=== PATIENT | male | born 1955 | race Caucasian/White ===

== ENCOUNTER 2020-01-08 03:52 | Inpatient (IN) | payer OTHER ==
[2020-01-08] VITALS (16 sets, daily range): BP systolic 86–111; BP diastolic 57–86
[~2020-01-08] VITALS: Ht 165.1 cm; Wt 70.8 kg
[2020-01-08 06:00] LABS: BASOPHILS % 1.2 % (0.0-2.0); EOSINOPHILS % 2.8 % (0.0-5.0); LYMPHOCYTES % 30.7 % (20.0-50.0); MEAN CORPUSCULAR HEMOGLOBIN 16.5 pg (28.0-32.0); MEAN PLATELET VOLUME 8.5 fl (7.4-10.4); MONOCYTES % 8.9 % (2.0-8.0); NEUTROPHILS % 56.4 % (40.0-76.0); PLATELET 261 x1000/uL (130-400); RED BLOOD CELL COUNT 3.59 mill/uL (4.7-6.1)
[2020-01-08 06:02] LABS: CHLORIDE 110 mEq/L (98-107)
[2020-01-08 06:07] LABS: HEMATOCRIT. 20.5 % (42.0-52.0); HEMOGLOBIN. 5.9 g/dL (14.0-18.0); INR 1.1; PARTIAL THROMBOPLASTIN TIME 23.5 sec (23.4-31.0); PROTHROMBIN TIME 11.8 sec (9.6-11.0)
[2020-01-08 06:08] LABS: PLATELET ESTIMATE NORMAL
[2020-01-08] MEDS ORDERED: SODIUM CHLORIDE 0.9% 1,000 ML IV ONE (06:08)
[2020-01-08 11:15] LABS: HEMOGLOBIN 6.2 g/dL (14.0-18.0)
[2020-01-08 11:16] LABS: HEMATOCRIT 20.1 % (42.0-52.0)
[2020-01-08 11:37] LABS: TOTAL IRON BINDING CAPACITY 369 ug/dL (250-450)
[2020-01-08 12:31] LABS: VITAMIN B12 SERUM 406 pg/mL (211-911)
[2020-01-08 12:50] LABS: FERRITIN < 5 ng/mL (22-322)
[2020-01-08] MEDS ORDERED: PNEUMOCOCCAL 23-VAL P-SAC VAC 0.5 ML IM ONE (13:30)
[2020-01-08] MEDS ORDERED: IPRATROPIUM/ALBUTEROL 0.5-3(2.5)MG/3ML NEB HHN PRN (16:30)
[2020-01-08] MEDS ORDERED: ONDANSETRON HCL 4MG/2ML INJ IV PRN (16:30)
[2020-01-08] MEDS ORDERED: HYDROCODONE/ACETAMINOPHEN 5/325MG TABLET PO PRN (16:30)
[2020-01-08] MEDS ORDERED: LORAZEPAM 0.5MG TABLET PO PRN (16:30)
[2020-01-08] MEDS ORDERED: MORPHINE SULFATE 2 MG/ML CPJ (NOT FOR IM USE) IV PRN (16:30)
[2020-01-08] MEDS ORDERED: ACETAMINOPHEN 325MG TABLET PO PRN ×2 (16:30)
[2020-01-08] MEDS: SODIUM CHLORIDE 0.9% 1,000 ML IV SCH (17:08)
[2020-01-08 20:09] LABS: HEMATOCRIT 24.8 % (42.0-52.0); HEMOGLOBIN 7.7 g/dL (14.0-18.0)
[2020-01-08] MEDS ORDERED: SITA100T11 PO (22:19)
[2020-01-08] MEDS ORDERED: SIMV-46 PO (22:19)
[2020-01-08] MEDS ORDERED: LISI40TA4 PO (22:19)
[2020-01-08 22:58] LABS: *AMPHETAMINES SCREEN URINE NEGATIVE (NEGATIVE); *BARBITURATES SCREEN URINE NEGATIVE (NEGATIVE); *BENZODIAZEPINES SCREEN URINE NEGATIVE (NEGATIVE); *COCAINE SCREEN URINE NEGATIVE (NEGATIVE); METHADONE URINE SCREEN NEGATIVE (NEGATIVE)
[2020-01-08 22:59] LABS: CANNABINOID URINE SCREEN NEGATIVE (NEGATIVE); OPIATES URINE SCREEN NEGATIVE (NEGATIVE); PHENCYCLIDINE URINE SCREEN NEGATIVE (NEGATIVE)
[2020-01-09] VITALS (17 sets, daily range): BP systolic 95–163; BP diastolic 55–87
[2020-01-09 00:47] LABS: HEMATOCRIT 24.5 % (42.0-52.0); HEMOGLOBIN 7.7 g/dL (14.0-18.0)
[2020-01-09] MEDS: SODIUM CHLORIDE 0.9% 1,000 ML IV SCH ×2 (04:03→16:51)
[2020-01-09 06:23] LABS: HEMATOCRIT 23.1 % (42.0-52.0); HEMOGLOBIN 7.3 g/dL (14.0-18.0)
[2020-01-09 13:10] LABS: FOLATE RBC 1814 ng/mL (>498)
[2020-01-09] MEDS: IRON SUCROSE COMPLEX 100 MG/5 ML ML IV SCH (14:54)
[2020-01-09] MEDS ORDERED: SORBITOL 70% SOLN 30ML PO SCH ×2 (16:00→20:00)
[2020-01-10] VITALS (12 sets, daily range): BP systolic 102–157; BP diastolic 48–102
[2020-01-10] MEDS: SODIUM CHLORIDE 0.9% 1,000 ML IV SCH ×2 (02:54→13:28)
[2020-01-10 07:34] LABS: BASOPHILS % 0.7 % (0.0-2.0); EOSINOPHILS % 2.7 % (0.0-5.0); HEMATOCRIT. 29.4 % (42.0-52.0); HEMOGLOBIN. 9.5 g/dL (14.0-18.0); LYMPHOCYTES % 27.6 % (20.0-50.0); MEAN CORPUSCULAR HEMOGLOBIN 22.9 pg (28.0-32.0); MEAN CORPUSCULAR VOLUME 70.4 fL (80.0-94.0); MEAN PLATELET VOLUME 8.4 fl (7.4-10.4); MONOCYTES % 9.6 % (2.0-8.0); NEUTROPHILS % 59.4 % (40.0-76.0); PLATELET 209 x1000/uL (130-400); RED BLOOD CELL COUNT 4.17 mill/uL (4.7-6.1); RED CELL DISTRIBUTION WIDTH 32.2 % (11.6-14.6)
[2020-01-10 07:41] LABS: INR 1.1; PARTIAL THROMBOPLASTIN TIME 24.2 sec (23.4-31.0); PROTHROMBIN TIME 11.6 sec (9.6-11.0)
[2020-01-10 08:35] LABS: CHLORIDE 119 mEq/L (98-107)
[2020-01-10] MEDS: IRON SUCROSE COMPLEX 100 MG/5 ML ML IV SCH (08:55)
[2020-01-10] MEDS ORDERED: SORBITOL 70% SOLN 30ML PO STA (10:45)
[2020-01-10] MEDS ORDERED: FENTANYL CITRATE/PF 50MCG/ML 2ML VIAL IV PRN (12:52)
[2020-01-10] MEDS ORDERED: MIDAZOLAM HCL 5 MG/5 ML VIAL IV PRN (12:54)
[2020-01-10] MEDS ORDERED: MIDAZOLAM HCL 5 MG/5 ML VIAL ONE (12:54)
[2020-01-10] MEDS ORDERED: FENTANYL CITRATE/PF 50MCG/ML 2ML VIAL ONE (12:54)
[2020-01-10 17:40] LABS: INR 1.1; PARTIAL THROMBOPLASTIN TIME 25.4 sec (23.4-31.0); PROTHROMBIN TIME 11.8 sec (9.6-11.0)
[2020-01-10] MEDS ORDERED: IOHEXOL-300 100 ML BOTTLE ONE (21:37)
[2020-01-11] VITALS (16 sets, daily range): BP systolic 102–171; BP diastolic 52–91
[2020-01-11] MEDS: SODIUM CHLORIDE 0.9% 1,000 ML IV SCH ×2 (01:02→12:14)
[2020-01-11 07:50] LABS: BASOPHILS % 0.7 % (0.0-2.0); EOSINOPHILS % 1.6 % (0.0-5.0); HEMATOCRIT. 29.8 % (42.0-52.0); HEMOGLOBIN. 9.6 g/dL (14.0-18.0); LYMPHOCYTES % 16.2 % (20.0-50.0); MEAN CORPUSCULAR VOLUME 71.1 fL (80.0-94.0); MEAN PLATELET VOLUME 8.5 fl (7.4-10.4); MONOCYTES % 6.2 % (2.0-8.0); NEUTROPHILS % 75.3 % (40.0-76.0); PLATELET 203 x1000/uL (130-400); RED BLOOD CELL COUNT 4.19 mill/uL (4.7-6.1); RED CELL DISTRIBUTION WIDTH 32.4 % (11.6-14.6)
[2020-01-11 08:13] LABS: CHLORIDE 118 mEq/L (98-107)
[2020-01-11] MEDS: IRON SUCROSE COMPLEX 100 MG/5 ML ML IV SCH (08:28)
[2020-01-11] MEDS ORDERED: POLYETHYLENE GLYCOL-ELECTROLYTE 4000ML PO NR (15:00)
[2020-01-11] MEDS ORDERED: NEOMYCIN 500MG TABLET PO SCH ×3 (18:00→23:00)
[2020-01-11] MEDS ORDERED: METRONIDAZOLE 500MG TABLET PO SCH ×3 (18:00→23:00)
[2020-01-11] MEDS: INSULIN LISPRO 100 UNITS/ML SUBCUT SCH (23:15)
[2020-01-11] MEDS ORDERED: HYDRALAZINE 20MG/ML VIAL IV PRN (23:15)
[2020-01-11] MEDS ORDERED: DEXTROSE 50% WATER 50ML SYRINGE IV PRN (23:15)
[2020-01-11] MEDS: BLOOD SUGAR DIAGNOSTIC STRIP TEST SCH (23:21)
[2020-01-12] VITALS (14 sets, daily range): BP systolic 94–161; BP diastolic 38–72
[2020-01-12] MEDS: SODIUM CHLORIDE 0.9% 1,000 ML IV SCH (03:25)
[2020-01-12] MEDS: BLOOD SUGAR DIAGNOSTIC STRIP TEST SCH ×4 (06:24→20:04)
[2020-01-12 06:28] LABS: CHLORIDE 116 mEq/L (98-107)
[2020-01-12 06:34] LABS: BASOPHILS % 0.6 % (0.0-2.0); EOSINOPHILS % 2.3 % (0.0-5.0); HEMATOCRIT. 31.2 % (42.0-52.0); LYMPHOCYTES % 26.4 % (20.0-50.0); MEAN CORPUSCULAR HEMOGLOBIN 23.2 pg (28.0-32.0); MEAN CORPUSCULAR VOLUME 72.7 fL (80.0-94.0); MEAN PLATELET VOLUME 8.4 fl (7.4-10.4); MONOCYTES % 8.4 % (2.0-8.0); NEUTROPHILS % 62.3 % (40.0-76.0); PLATELET 208 x1000/uL (130-400); RED BLOOD CELL COUNT 4.29 mill/uL (4.7-6.1)
[2020-01-12] MEDS ORDERED: BUPIVACAINE HCL/PF 0.5% (5MG/ML) 10ML ONE (06:43)
[2020-01-12] MEDS ORDERED: LIDOCAINE HCL 1% 20ML VIAL (Pyxis) INJ ONE (06:43)
[2020-01-12] MEDS ORDERED: NORMAL SALINE 0.9% 10 ML SYR ONE (06:44)
[2020-01-12] MEDS ORDERED: BACITRACIN 50,000 UNITS/VIAL ONE (06:44)
[2020-01-12] MEDS: INSULIN LISPRO 100 UNITS/ML SUBCUT SCH ×4 (07:20→20:11)
[2020-01-12] MEDS ORDERED: MORPHINE SULFATE/PF 1MG/ML 10ML AMP ONE (07:30)
[2020-01-12] MEDS ORDERED: CEFAZOLIN 2,000 MG in DEXT 5% WATER 100 ML IV SCH (08:00)
[2020-01-12] MEDS ORDERED: ROCURONIUM BROMIDE 10MG/ML VIAL 5ML IV ONE (08:43)
[2020-01-12] MEDS ORDERED: PROPOFOL 200MG/20ML VIAL IV ONE (08:43)
[2020-01-12] MEDS ORDERED: DEXAMETHASONE 4MG/ML 1ML VIAL ONE (08:44)
[2020-01-12] MEDS ORDERED: GLYCOPYRROLATE 0.2 MG/ML 2ML VIAL ONE ×2 (08:47→09:28)
[2020-01-12] MEDS ORDERED: METRONIDAZOLE 500 MG PREMIX 100 ML IV ONE (09:28)
[2020-01-12] MEDS ORDERED: ALBUMIN HUMAN 12.5G/250ML (5%) IV ONE (09:36)
[2020-01-12] MEDS ORDERED: MEPERIDINE HCL/PF 25MG/ML CPJ IV PRN (10:30)
[2020-01-12] MEDS ORDERED: LABETALOL 5MG/ML SYR 20 MG/4 ML SYRINGE IV PRN (10:30)
[2020-01-12] MEDS ORDERED: ONDANSETRON HCL 4MG/2ML INJ IV PRN (10:30)
[2020-01-12] MEDS ORDERED: METRONIDAZOLE 500 MG PREMIX 100 ML IV SCH ×2 (11:00→23:00)
[2020-01-12] MEDS: HYDROMORPHONE HCL/PF 2MG/ML CPJ IV PRN ×4 (11:51→12:41)
[2020-01-12] MEDS: DEXT 5%/0.45% NACL KCL 20MEQ/L 1,000 ML IV SCH (15:14)
[2020-01-13] VITALS (16 sets, daily range): BP systolic 92–158; BP diastolic 55–83
[2020-01-13] MEDS: DEXT 5%/0.45% NACL KCL 20MEQ/L 1,000 ML IV SCH ×3 (01:48→20:00)
[2020-01-13] MEDS: BLOOD SUGAR DIAGNOSTIC STRIP TEST SCH ×4 (06:02→20:44)
[2020-01-13 07:11] LABS: BASOPHILS % 0.1 % (0.0-2.0); HEMATOCRIT. 29.3 % (42.0-52.0); HEMOGLOBIN. 9.3 g/dL (14.0-18.0); LYMPHOCYTES % 7.6 % (20.0-50.0); MEAN CORPUSCULAR VOLUME 72.6 fL (80.0-94.0); MEAN PLATELET VOLUME 8.2 fl (7.4-10.4); MONOCYTES % 7.3 % (2.0-8.0); PLATELET 226 x1000/uL (130-400); RED BLOOD CELL COUNT 4.04 mill/uL (4.7-6.1); RED CELL DISTRIBUTION WIDTH 33.5 % (11.6-14.6)
[2020-01-13] MEDS: INSULIN LISPRO 100 UNITS/ML SUBCUT SCH ×4 (07:20→20:44)
[2020-01-13 08:15] LABS: CHLORIDE 115 mEq/L (98-107)
[2020-01-13] MEDS: HYDROMORPHONE HCL/PF 2MG/ML CPJ IV PRN ×3 (13:26→22:52)
[2020-01-13] MEDS: PANTOPRAZOLE SODIUM 40 MG/VIAL IV SCH (18:02)
[2020-01-13] MEDS: BISACODYL 10MG SUPP PR SCH (20:54)
[2020-01-13] MEDS: METOCLOPRAMIDE HCL 10MG/2ML VIAL IV SCH (23:40)
[2020-01-14] VITALS (15 sets, daily range): BP systolic 109–158; BP diastolic 59–83
[2020-01-14] MEDS: HYDROMORPHONE HCL/PF 2MG/ML CPJ IV PRN ×6 (01:24→20:57)
[2020-01-14] MEDS: METOCLOPRAMIDE HCL 10MG/2ML VIAL IV SCH ×4 (05:17→23:30)
[2020-01-14] MEDS: DEXT 5%/0.45% NACL KCL 20MEQ/L 1,000 ML IV SCH ×2 (05:24→22:08)
[2020-01-14] MEDS: BLOOD SUGAR DIAGNOSTIC STRIP TEST SCH ×4 (06:29→21:07)
[2020-01-14 06:47] LABS: BASOPHILS % 0.4 % (0.0-2.0); EOSINOPHILS % 0.7 % (0.0-5.0); HEMOGLOBIN. 8.7 g/dL (14.0-18.0); LYMPHOCYTES % 15.4 % (20.0-50.0); MEAN CORPUSCULAR HEMOGLOBIN 23.7 pg (28.0-32.0); MEAN CORPUSCULAR VOLUME 73.4 fL (80.0-94.0); MEAN PLATELET VOLUME 8.3 fl (7.4-10.4); NEUTROPHILS % 75.5 % (40.0-76.0); PLATELET 181 x1000/uL (130-400); RED BLOOD CELL COUNT 3.68 mill/uL (4.7-6.1); RED CELL DISTRIBUTION WIDTH 34.8 % (11.6-14.6)
[2020-01-14 06:59] LABS: CHLORIDE 110 mEq/L (98-107)
[2020-01-14] MEDS: INSULIN LISPRO 100 UNITS/ML SUBCUT SCH ×4 (07:20→21:12)
[2020-01-14] MEDS: PANTOPRAZOLE SODIUM 40 MG/VIAL IV SCH ×2 (09:25→16:42)
[2020-01-14] MEDS: BISACODYL 10MG SUPP PR SCH (09:25)
[2020-01-14] MEDS: ENOXAPARIN 40MG/0.4ML SYR SUBCUT SCH (09:25)
[2020-01-14] MEDS ORDERED: HYDROCODONE/ACETAMINOPHEN 5/325MG TABLET PO PRN (10:45)
[2020-01-14] MEDS: LISINOPRIL 20MG TABLET PO SCH (12:58)
[2020-01-14] MEDS ORDERED: HYDRALAZINE 10 MG in SODIUM CHLORIDE 0.9% 49.5 ML IV PRN (15:30)
[2020-01-14] MEDS: ATORVASTATIN CALCIUM 40MG TABLET PO SCH (20:50)
[2020-01-14] MEDS ORDERED: HYDROMORPHONE HCL/PF 2MG/ML CPJ IV PRN (21:45)
[2020-01-14] MEDS: GABAPENTIN 300MG CAPSULE PO SCH (22:09)
[2020-01-14] MEDS: KETOROLAC 30MG/ML VIAL IV SCH (22:40)
[2020-01-15] VITALS: BP 137/68
[2020-01-15] MEDS: KETOROLAC 30MG/ML VIAL IV SCH ×4 (03:30→21:04)
[2020-01-15 04:00] VITALS: BP 143/66
[2020-01-15] MEDS: METOCLOPRAMIDE HCL 10MG/2ML VIAL IV SCH ×3 (06:03→18:00)
[2020-01-15] MEDS: GABAPENTIN 300MG CAPSULE PO SCH ×3 (06:03→21:54)
[2020-01-15] MEDS: BLOOD SUGAR DIAGNOSTIC STRIP TEST SCH ×4 (06:25→20:01)
[2020-01-15 07:32] LABS: CHLORIDE 110 mEq/L (98-107)
[2020-01-15 07:46] LABS: PHOSPHORUS 2.4 mg/dL (2.5-4.9)
[2020-01-15] MEDS: INSULIN LISPRO 100 UNITS/ML SUBCUT SCH ×4 (07:50→20:33)
[2020-01-15 07:53] LABS: BASOPHILS % 0.8 % (0.0-2.0); EOSINOPHILS % 2.7 % (0.0-5.0); HEMOGLOBIN. 9.6 g/dL (14.0-18.0); LYMPHOCYTES % 20.4 % (20.0-50.0); MEAN CORPUSCULAR HEMOGLOBIN 23.6 pg (28.0-32.0); MEAN PLATELET VOLUME 8.3 fl (7.4-10.4); MONOCYTES % 10.2 % (2.0-8.0); NEUTROPHILS % 65.9 % (40.0-76.0); PLATELET 201 x1000/uL (130-400); RED BLOOD CELL COUNT 4.06 mill/uL (4.7-6.1); RED CELL DISTRIBUTION WIDTH 34.6 % (11.6-14.6)
[2020-01-15 08:00] VITALS: BP 149/70
[2020-01-15] MEDS: ENOXAPARIN 40MG/0.4ML SYR SUBCUT SCH (09:00)
[2020-01-15] MEDS: PANTOPRAZOLE SODIUM 40 MG/VIAL IV SCH ×2 (09:36→17:00)
[2020-01-15] MEDS: LISINOPRIL 20MG TABLET PO SCH (09:36)
[2020-01-15] MEDS: BISACODYL 10MG SUPP PR SCH (09:36)
[2020-01-15 12:00] VITALS: BP 125/80
[2020-01-15 16:00] VITALS: BP 158/74
[2020-01-15 20:00] VITALS: BP 127/67
[2020-01-15] MEDS: ATORVASTATIN CALCIUM 40MG TABLET PO SCH (20:34)
[2020-01-15] MEDS: DEXT 5%/0.45% NACL KCL 20MEQ/L 1,000 ML IV SCH ×2 (21:04→22:00)
[2020-01-16] VITALS: BP 159/64
[2020-01-16] MEDS: METOCLOPRAMIDE HCL 10MG/2ML VIAL IV SCH ×3 (00:46→12:00)
[2020-01-16] MEDS: KETOROLAC 30MG/ML VIAL IV SCH ×2 (03:30→09:35)
[2020-01-16 04:00] VITALS: BP 149/76
[2020-01-16] MEDS: GABAPENTIN 300MG CAPSULE PO SCH ×2 (06:19→14:00)
[2020-01-16 06:24] LABS: BASOPHILS % 0.9 % (0.0-2.0); EOSINOPHILS % 3.3 % (0.0-5.0); HEMATOCRIT. 30.2 % (42.0-52.0); HEMOGLOBIN. 9.7 g/dL (14.0-18.0); LYMPHOCYTES % 20.2 % (20.0-50.0); MEAN CORPUSCULAR HEMOGLOBIN 23.8 pg (28.0-32.0); MEAN CORPUSCULAR VOLUME 73.8 fL (80.0-94.0); MEAN PLATELET VOLUME 8.4 fl (7.4-10.4); MONOCYTES % 10.1 % (2.0-8.0); NEUTROPHILS % 65.5 % (40.0-76.0); PLATELET 220 x1000/uL (130-400); RED BLOOD CELL COUNT 4.09 mill/uL (4.7-6.1); RED CELL DISTRIBUTION WIDTH 34.3 % (11.6-14.6)
[2020-01-16 07:18] LABS: CHLORIDE 113 mEq/L (98-107)
[2020-01-16] MEDS: BLOOD SUGAR DIAGNOSTIC STRIP TEST SCH ×2 (07:20→12:15)
[2020-01-16 08:00] VITALS: BP 148/70
[2020-01-16] MEDS: BISACODYL 10MG SUPP PR SCH (09:00)
[2020-01-16] MEDS: DEXT 5%/0.45% NACL KCL 20MEQ/L 1,000 ML IV SCH (09:24)
[2020-01-16] MEDS: INSULIN LISPRO 100 UNITS/ML SUBCUT SCH ×2 (09:32→12:24)
[2020-01-16] MEDS: ENOXAPARIN 40MG/0.4ML SYR SUBCUT SCH (09:34)
[2020-01-16] MEDS: PANTOPRAZOLE SODIUM 40 MG/VIAL IV SCH (09:34)
[2020-01-16] MEDS: LISINOPRIL 20MG TABLET PO SCH (09:34)
[2020-01-16 12:00] VITALS: BP 111/69
[2020-01-16] MEDS ORDERED: HYDR-4001 MT (12:00)
[2020-01-16] MEDS ORDERED: DOCU-150 MT (12:02)
[2020-01-16 12:53] VITALS: BP 111/69
== END 2020-01-16 14:15 | disposition home or self-care (01) | DRG 231 ==
LOC: ER 03:52 → 3WST 07:44 → EDBEDREQ 07:47 → ENRESERV 08:19 → 6EST 01-14 14:58
PROVIDERS: ADMIT Internal Medicine; ATTEND Internal Medicine
PROC: 30233N1 Transfusion of Nonautologous Red Blood Cells into Peripheral Vein, Percutaneous Approach (ICD-10-PCS; principal; 2020-01-08)
PROC: 0DBL8ZX Excision of Transverse Colon, Via Natural or Artificial Opening Endoscopic, Diagnostic (ICD-10-PCS; 2020-01-10)
PROC: 0DTF0ZZ Resection of Right Large Intestine, Open Approach (ICD-10-PCS; 2020-01-12)
DX: C18.9 Malignant neoplasm of colon, unspecified (principal); K63.3 Ulcer of intestine; E46 Unspecified protein-calorie malnutrition; E11.65 Type 2 diabetes mellitus with hyperglycemia; D62 Acute posthemorrhagic anemia; K64.8 Other hemorrhoids; E88.09 Other disorders of plasma-protein metabolism, not elsewhere classified; D50.9 Iron deficiency anemia, unspecified; Z20.828 Contact with and (suspected) exposure to other viral communicable diseases; R01.1 Cardiac murmur, unspecified; M54.9 Dorsalgia, unspecified; Z68.26 Body mass index [BMI] 26.0-26.9, adult; K62.5 Hemorrhage of anus and rectum
CPT/HCPCS: 36415; 71045; 74177; 80048; 80053; 80061; 80076; 80305; 82378; 82607; 82728; 82747; 82962; 83036; 83540; 83550; 83735; 84100; 84443; 84484; 85014; 85018; 85025; 86850; 86900; 86920; 87635; 88304; 88307; 90732; 93005; 97116; 97162; 97166; 97530; 97535; 99152; 99291; C9113; G0378; J0690; J1100; J1170; J1650; J1815; J1885; J2250; J2274; J2405; J2704; J2765; J3010; J3490; J7030; J7060; P9016; P9041; Q9967; G0500